=== PATIENT | female | born 1960 | race Caucasian/White ===

== ENCOUNTER 2021-06-22 13:04 | Inpatient (IN) ==
[2021-06-22 14:26] LABS: Basophils # 0.1 K/mcL (0.0-0.2); Basophils % 1.4 %; Eosinophils # 0.2 K/mcL (0.0-0.6); Eosinophils % 2.4 %; Hematocrit 40.4 % (35.3-44.9); Hemoglobin 13.6 g/dL (11.5-15.4); Immature Granulocytes % 0.4 % (0-4); Immature Platelets 15.2 % (1.1-6.1); Lymphocytes # 2.2 K/mcL (0.6-4.6); Lymphocytes % 26.3 %; Mean Corpuscular HGB Conc 33.7 g/dL (31.6-35.5); Mean Corpuscular Hemoglobin 30.6 pg (28.0-33.3); Monocytes # 0.5 K/mcL (0.0-1.3); Monocytes % 5.7 %; Neutrophils # 5.4 K/mcL (1.6-8.9); Platelet Count 137 K/mcL (140-400); Red Blood Count 4.44 M/mcL (3.82-4.97); Red Cell Distribution Width 16.8 % (11.5-14.5); Segmented Neutrophils % 63.8 %; White Blood Count 8.5 K/mcL (4.3-11.1)
[2021-06-22 14:48] LABS: Bacteria,Urine Few per hpf (None-Few); Bilirubin,Urine Moderate (Negative); Blood,Urine Trace (Negative); Clarity,Urine Turbid (Clear); Color,Urine Dark-Yellow (Yellow); Glucose,Urine (UA) 300 mg/dL (Normal); Hyaline Casts,Urine Many per lpf (None Seen); Ketones,Urine Negative (Negative); Leukocyte Esterase,Urine Negative (Negative); Mucus,Urine Few per lpf (None-Few); Nitrite,Urine Negative (Negative); Protein,Urine >=300 mg/dL (Neg-Trace); RBC,Urine 0-3 per hpf (0-3); Specific Gravity,Urine 1.029 (1.010-1.025); Squamous Epithelial Cell,Urine Moderate per hpf (None-Few); WBC,Urine 15-30 per hpf (0-3)
[2021-06-22 14:49] LABS: Calcium 9.1 mg/dL (8.6-10.3); Potassium 4.1 mEq/L (3.5-5.1)
[2021-06-22 14:55] LABS: Troponin I 0.07 ng/mL (< 0.04)
[2021-06-22] MEDS ORDERED: 0.9 % Sodium Chloride 1,000 ML IVC ONE (14:58)
[2021-06-22] MEDS ORDERED: Metoclopramide 10 MG/2 ML VIAL IVP ONE (15:02)
[2021-06-22 15:17] LABS: Influenza A PCR Negative (Negative); Influenza B PCR Negative (Negative); Resp. Syncytial Virus PCR Negative (Negative)
[2021-06-22 15:18] LABS: SARS-CoV-2 by PCR (In House) Negative (Negative)
[2021-06-22 16:25] LABS: Albumin 3.1 g/dL (3.5-5.7); Albumin/Globulin Ratio 0.7 (1.1-2.2); Bilirubin,Indirect 1.4 mg/dL (0.0-1.0); Bilirubin,Total 3.4 mg/dL (0.3-1.0); Globulin 4.7 g/dL (2.4-3.5); Total Protein 7.8 g/dL (6.4-8.9)
[2021-06-22 17:07] LABS: INR 1.1; Prothrombin Time 11.7 Seconds (9.4-12.1)
[2021-06-22 17:09] LABS: Activated Partial Thrombo Time 40.6 Seconds (26.0-36.0)
[2021-06-22] MEDS ORDERED: *HR* Dextrose 50 % in Water (Syg) 50 ML SYRINGE IVP PRN (17:10)
[2021-06-22] MEDS ORDERED: Acetaminophen 325 MG TABLET PO PRN (17:10)
[2021-06-22] MEDS ORDERED: D5% in Water 1,000 ML IVC PRN (17:10)
[2021-06-22] MEDS ORDERED: Naloxone 0.4 MG/ML INJ IVP PRN (17:10)
[2021-06-22] MEDS ORDERED: Dextrose Gel 15 GM/37.5 ML TUBE PO PRN ×2 (17:10)
[2021-06-22] MEDS ORDERED: Ondansetron 4 MG/2 ML VIAL IVP PRN (17:10)
[2021-06-22] MEDS ORDERED: cefTRIAXone 1,000 MG in Water for inj. (sterile) 10 ML IVP ONE (17:12)
[2021-06-22] MEDS: Insulin LISPRO 300 UNITS/3 ML VIAL SUBQ SCH (19:23)
[2021-06-22] MEDS: Ringers Solution, Lactated 1,000 ML IVC SCH (19:24)
[2021-06-22] MEDS: Insulin DETEMIR 100 UNIT/ML X5UNITS SUBQ SCH (21:04)
[2021-06-23] MEDS: Insulin LISPRO 300 UNITS/3 ML VIAL SUBQ SCH ×4 (00:08→19:09)
[2021-06-23] MEDS: Ringers Solution, Lactated 1,000 ML IVC SCH ×4 (02:05→21:48)
[2021-06-23 05:53] LABS: Eosinophils % 3.5 %; Lymphocytes % 30.4 %
[2021-06-23 05:55] LABS: Basophils # 0.1 K/mcL (0.0-0.2); Basophils % 1.3 %; Eosinophils # 0.3 K/mcL (0.0-0.6); Hematocrit 37.6 % (35.3-44.9); Hemoglobin 12.7 g/dL (11.5-15.4); Immature Granulocytes % 0.3 % (0-4); Immature Platelets 15.4 % (1.1-6.1); Lymphocytes # 2.3 K/mcL (0.6-4.6); Mean Corpuscular HGB Conc 33.8 g/dL (31.6-35.5); Mean Corpuscular Hemoglobin 30.2 pg (28.0-33.3); Mean Corpuscular Volume 89.3 fL (83.0-100.0); Monocytes # 0.4 K/mcL (0.0-1.3); Monocytes % 5.4 %; Neutrophils # 4.5 K/mcL (1.6-8.9); Platelet Count 119 K/mcL (140-400); Red Blood Count 4.21 M/mcL (3.82-4.97); Red Cell Distribution Width 16.9 % (11.5-14.5); Segmented Neutrophils % 59.1 %; White Blood Count 7.6 K/mcL (4.3-11.1)
[2021-06-23 06:19] LABS: Alanine Aminotransferase 169 Units/L (7-52); Albumin 2.8 g/dL (3.5-5.7); Albumin/Globulin Ratio 0.7 (1.1-2.2); Alkaline Phosphatase 1240 Units/L (34-104); Aspartate Amino Transferase 226 Units/L (13-39); BUN/Creatinine Ratio 14 (6-26); Bilirubin,Direct 1.6 mg/dL (0.0-0.2); Bilirubin,Indirect 0.9 mg/dL (0.0-1.0); Bilirubin,Total 2.5 mg/dL (0.3-1.0); Blood Urea Nitrogen 14 mg/dL (6-20); Calcium 8.7 mg/dL (8.6-10.3); Carbon Dioxide 27 mEq/L (23-29); Chloride 102 mEq/L (98-107); Glucose 146 mg/dL (70-105); Lipase 163 Units/L (11-82); Magnesium 1.5 mg/dL (1.6-2.6); Osmolality,Calculated 285 (280-300); Potassium 3.6 mEq/L (3.5-5.1); Sodium 136 mEq/L (136-145); Total Protein 6.8 g/dL (6.4-8.9); eGFR For African Americans > 60 (> 60); eGFR For Non-African Americans 57 (> 60)
[2021-06-23 06:34] LABS: Platelet Estimate Slight Decrease (Normal)
[2021-06-23] MEDS ORDERED: cefTRIAXone 1,000 MG in Water for inj. (sterile) 10 ML IVP SCH (09:00)
[2021-06-23] MEDS: Insulin DETEMIR 100 UNIT/ML X5UNITS SUBQ SCH (20:11)
[2021-06-24] MEDS: Insulin LISPRO 300 UNITS/3 ML VIAL SUBQ SCH ×2 (00:25→05:58)
[2021-06-24 03:58] VITALS: PULSE 58
[2021-06-24] MEDS: Ringers Solution, Lactated 1,000 ML IVC SCH (05:49)
[2021-06-24 07:05] LABS: Mean Corpuscular Volume 89.5 fL (83.0-100.0); White Blood Count 7.9 K/mcL (4.3-11.1)
[2021-06-24 07:07] LABS: Basophils # 0.1 K/mcL (0.0-0.2); Basophils % 1.5 %; Eosinophils # 0.3 K/mcL (0.0-0.6); Eosinophils % 3.5 %; Hematocrit 37.6 % (35.3-44.9); Hemoglobin 12.9 g/dL (11.5-15.4); Immature Granulocytes % 0.3 % (0-4); Immature Platelets 14.9 % (1.1-6.1); Lymphocytes # 2.4 K/mcL (0.6-4.6); Lymphocytes % 29.9 %; Mean Corpuscular HGB Conc 34.3 g/dL (31.6-35.5); Mean Corpuscular Hemoglobin 30.7 pg (28.0-33.3); Monocytes # 0.5 K/mcL (0.0-1.3); Monocytes % 6.6 %; Neutrophils # 4.6 K/mcL (1.6-8.9); Platelet Count 130 K/mcL (140-400); Red Cell Distribution Width 16.8 % (11.5-14.5); Segmented Neutrophils % 58.2 %
[2021-06-24 07:11] VITALS: BP 161/86; TEMP 97.9; O2SAT 90
[2021-06-24 07:24] LABS: Alanine Aminotransferase 156 Units/L (7-52); Albumin 2.9 g/dL (3.5-5.7); Albumin/Globulin Ratio 0.7 (1.1-2.2); Alkaline Phosphatase 1247 Units/L (34-104); Aspartate Amino Transferase 208 Units/L (13-39); BUN/Creatinine Ratio 15 (6-26); Bilirubin,Total 2.1 mg/dL (0.3-1.0); Blood Urea Nitrogen 14 mg/dL (6-20); Calcium 8.8 mg/dL (8.6-10.3); Carbon Dioxide 28 mEq/L (23-29); Chloride 102 mEq/L (98-107); Chol/HDL Ratio 10.4 (0-4.9); Cholesterol 270 mg/dL (< 200); Globulin 4.2 g/dL (2.4-3.5); Glucose 65 mg/dL (70-105); HDL Cholesterol 26 mg/dL (40-59); LDL Cholesterol,Calculated 224 mg/dL (< 100); Osmolality,Calculated 285 (280-300); Potassium 3.2 mEq/L (3.5-5.1); Sodium 138 mEq/L (136-145); Total Protein 7.1 g/dL (6.4-8.9); Triglycerides 98 mg/dL (< 150); eGFR For African Americans > 60 (> 60); eGFR For Non-African Americans > 60 (> 60)
== END 2021-06-24 11:49 | disposition home or self-care (01) | DRG 438 ==
LOC: 3BNU 13:04 → EMEROOARM 13:04 → 3BNU 18:41
PROVIDERS: ADMIT Student in an Organized Health Care Education/Training Program; ATTEND Student in an Organized Health Care Education/Training Program

== ENCOUNTER 2021-12-23 16:06 | Inpatient (IN) ==
[2021-12-23 17:39] LABS: Hematocrit 26.9 % (35.3-44.9); Hemoglobin 8.6 g/dL (11.5-15.4); Platelet Count 117 K/mcL (140-400); Red Blood Count 2.69 M/mcL (3.82-4.97); Red Cell Distribution Width 25.8 % (11.5-14.5); White Blood Count 11.2 K/mcL (4.3-11.1)
[2021-12-23 17:49] LABS: INR 1.5
[2021-12-23] MEDS ORDERED: Azithromycin 500 MG in D5% in Water 250 ML IVPB ONE (17:59)
[2021-12-23] MEDS ORDERED: cefTRIAXone 2,000 MG in 0.9 % Sodium Chloride Mini Bag 100 ML IVPB ONE (17:59)
[2021-12-23 18:19] LABS: Lymphocytes # 0.2 K/mcL (0.6-4.6); Neutrophils # 10.1 K/mcL (1.6-8.9)
[2021-12-23 18:20] LABS: Albumin 2.1 g/dL (3.5-5.7); Albumin/Globulin Ratio 0.7 (1.1-2.2); Anisocytosis 2+ (Not Present); Bilirubin,Direct 9.4 mg/dL (0.0-0.2); Bilirubin,Indirect 6.3 mg/dL (0.0-1.0); Bilirubin,Total 15.7 mg/dL (0.3-1.0); Calcium 5.9 mg/dL (8.6-10.3); Globulin 2.9 g/dL (2.4-3.5); Platelet Estimate Slight Decrease (Normal); Potassium 4.6 mEq/L (3.5-5.1); Troponin I 0.17 ng/mL (< 0.04)
[2021-12-23 18:21] LABS: Hypochromasia Present (Not Present)
[2021-12-23] MEDS ORDERED: Calcium Gluconate 1gm/50mL 1 GM/50 ML BAG IVPB ONE (18:31)
[2021-12-23] MEDS ORDERED: Calcium Gluconate 1gm/50mL BAG IVPB ONE (19:45)
[2021-12-23 20:03] LABS: Adenovirus Not Detected (Not Detect); Bordetella Pertussis Not Detected (Not Detect); Chlamydophila pneumoniae Not Detected (Not Detect); Coronavirus 229E Not Detected (Not Detect); Coronavirus HKU1 Not Detected (Not Detect); Coronavirus NL63 Not Detected (Not Detect); Coronavirus OC43 Not Detected (Not Detect); Human Metapneumovirus Not Detected (Not Detect); Human Rhinovirus/Enterovirus Not Detected (Not Detect); Influenza A Subtype 2009 H1 Not Detected (Not Detect); Influenza B Not Detected (Not Detect); Mycoplasma pneumoniae Not Detected (Not Detect); Parainfluenza Virus 1 Not Detected (Not Detect); Parainfluenza Virus 2 Not Detected (Not Detect); Parainfluenza Virus 3 Not Detected (Not Detect); Parainfluenza Virus 4 Not Detected (Not Detect); Respiratory Syncytial Virus Not Detected (Not Detect); SARS-CoV-2 Not Detected (Not Detect)
[2021-12-23] MEDS ORDERED: Naloxone 0.4 MG/ML INJ IVP PRN (22:25)
[2021-12-23] MEDS ORDERED: Dextrose 4 GM Chewable Tablets PO PRN ×2 (22:30)
[2021-12-23] MEDS ORDERED: D5% in Water 1,000 ML IVC PRN (22:30)
[2021-12-23] MEDS ORDERED: *HR* Dextrose 50 % in Water (Syg) 50 ML SYRINGE IVP PRN (22:30)
[2021-12-23] MEDS ORDERED: Aspirin 81 MG TAB.CHEW PO ONE (22:45)
[2021-12-23] MEDS ORDERED: Aspirin 81 MG TAB.CHEW PO SCH (22:45)
[2021-12-23] MEDS ORDERED: Albumin 25% 25gram/100mL 25 GM/100 ML IV.SOLN IVPB ONE (23:23)
[2021-12-24] MEDS ORDERED: *HR* OxyCODONE Immed Rel 5 MG TABLET PO PRN ×2 (00:07)
[2021-12-24] MEDS: Insulin DETEMIR 100 UNIT/ML X5UNITS SUBQ SCH ×2 (01:12→07:53)
[2021-12-24 03:18] LABS: Basophils % 0.3 %; Hematocrit 26.3 % (35.3-44.9); Hemoglobin 8.2 g/dL (11.5-15.4); Immature Granulocytes % 3.5 % (0-4); Lymphocytes # 0.6 K/mcL (0.6-4.6); Lymphocytes % 5.2 %; Mean Corpuscular HGB Conc 31.2 g/dL (31.6-35.5); Mean Corpuscular Hemoglobin 31.4 pg (28.0-33.3); Mean Corpuscular Volume 100.8 fL (83.0-100.0); Mean Platelet Volume 11.8 fL (9.4-12.4); Monocytes # 0.3 K/mcL (0.0-1.3); Monocytes % 2.8 %; Nucleated Red Blood Cells 0.2 /100 WBC (0); Platelet Count 103 K/mcL (140-400); Red Blood Count 2.61 M/mcL (3.82-4.97); Red Cell Distribution Width 25.2 % (11.5-14.5); Segmented Neutrophils % 88.2 %; White Blood Count 10.9 K/mcL (4.3-11.1)
[2021-12-24 03:20] LABS: Neutrophils # 9.6 K/mcL (1.6-8.9)
[2021-12-24 03:25] LABS: INR 1.5
[2021-12-24 03:46] LABS: Albumin 2.4 g/dL (3.5-5.7); Albumin/Globulin Ratio 0.8 (1.1-2.2); Bilirubin,Total 15.8 mg/dL (0.3-1.0); Calcium 6.1 mg/dL (8.6-10.3); Magnesium 1.5 mg/dL (1.6-2.6); Phosphorous 6.8 mg/dL (2.7-4.5); Potassium 4.6 mEq/L (3.5-5.1); Total Protein 5.4 g/dL (6.4-8.9); Troponin I 0.15 ng/mL (< 0.04)
[2021-12-24 03:53] LABS: Anisocytosis 3+ (Not Present); Hypochromasia Present (Not Present); Platelet Estimate Decreased (Normal)
[2021-12-24] MEDS ORDERED: *HR* Heparin 5,000 UNIT/ML VIAL SQ SCH (06:00)
[2021-12-24] MEDS: Insulin LISPRO 300 UNITS/3 ML VIAL SUBQ SCH ×4 (07:51→21:19)
[2021-12-24] MEDS: Levothyroxine 25 MCG TABLET PO SCH (07:54)
[2021-12-24] MEDS ORDERED: Aspirin 81 MG TAB.CHEW PO SCH (09:00)
[2021-12-24] MEDS ORDERED: *HR* Heparin 10,000 UNIT/10 ML VIAL IV PRN (09:24)
[2021-12-24] MEDS ORDERED: 0.9 % Sodium Chloride 250 ML IVC PRN (09:24)
[2021-12-24] MEDS ORDERED: 0.9 % Sodium Chloride 1,000 ML PRIME SCH (09:30)
[2021-12-24 11:01] LABS: Hepatitis B Surface Antibody 84.16 mIU/mL
[2021-12-24 11:12] LABS: Hepatitis B Surface Antigen Nonreactive (Nonreactive)
[2021-12-24] MEDS: predniSONE 20 MG TABLET PO SCH (14:47)
[2021-12-24] MEDS: Calcium Gluconate 1gm/50mL 1 GM/50 ML BAG IVPB SCH ×3 (14:59→16:13)
[2021-12-24] MEDS ORDERED: cefTRIAXone 1,000 MG in 0.9 % Sodium Chloride Mini Bag 100 ML IVPB SCH (15:00)
[2021-12-24] MEDS ORDERED: Azithromycin 500 MG in 0.9 % Sodium Chloride 250 ML IVPB SCH (15:00)
[2021-12-24] MEDS: Sulfamethoxazole/Trimeth DS 1 EACH TABLET PO SCH (16:50)
[2021-12-24] MEDS: Albumin 25% 25gram/100mL 25 GM/100 ML IV.SOLN IVPB SCH (17:15)
[2021-12-24] MEDS ORDERED: Perflutren Lipid Microsphere 1.3 ML in 0.9 % Sodium Chloride 8.7 ML IVP PRN (17:43)
[2021-12-24] MEDS: Pantoprazole 40 MG VIAL IVP SCH (17:49)
[2021-12-24 19:18] LABS: Basophils % 0.3 %; Eosinophils % 0.3 %; Hematocrit 26.7 % (35.3-44.9); Hemoglobin 8.4 g/dL (11.5-15.4); Immature Granulocytes % 2.6 % (0-4); Lymphocytes # 0.4 K/mcL (0.6-4.6); Mean Corpuscular HGB Conc 31.5 g/dL (31.6-35.5); Mean Corpuscular Hemoglobin 30.7 pg (28.0-33.3); Mean Corpuscular Volume 97.4 fL (83.0-100.0); Mean Platelet Volume 11.4 fL (9.4-12.4); Monocytes # 0.4 K/mcL (0.0-1.3); Monocytes % 4.3 %; Neutrophils # 8.9 K/mcL (1.6-8.9); Nucleated Red Blood Cells 0.2 /100 WBC (0); Platelet Count 107 K/mcL (140-400); Red Blood Count 2.74 M/mcL (3.82-4.97); Red Cell Distribution Width 24.7 % (11.5-14.5); Segmented Neutrophils % 88.5 %; White Blood Count 10.1 K/mcL (4.3-11.1)
[2021-12-24 19:51] LABS: A.calcoaceticus-baumannii cplx Not Detected (Not Detect); Bacteroides fragilis by PCR Not Detected (Not Detect); Candida albicans by PCR Not Detected (Not Detect); Candida auris by PCR Not Detected (Not Detect); Candida glabrata by PCR Not Detected (Not Detect); Candida krusei by PCR Not Detected (Not Detect); Candida parapsilosis by PCR Not Detected (Not Detect); Candida tropicalis by PCR Not Detected (Not Detect); Crypto. neoformans/gattii PCR Not Detected (Not Detect); Enterobacter cloacae Cmplx PCR Not Detected (Not Detect); Enterobacterales by PCR Not Detected (Not Detect); Enterococcus faecalis by PCR Not Detected (Not Detect); Enterococcus faecium by PCR Not Detected (Not Detect); Escherichia coli by PCR Not Detected (Not Detect); Klebs. pneumoniae group by PCR Not Detected (Not Detect); Klebsiella aerogenes by PCR Not Detected (Not Detect); Klebsiella oxytoca by PCR Not Detected (Not Detect); Proteus by PCR Not Detected (Not Detect); Pseudomonas aeruginosa by PCR Not Detected (Not Detect); Salmonella species by PCR Not Detected (Not Detect); Serratia marcescens by PCR Not Detected (Not Detect); Staph epidermidis by PCR Not Detected (Not Detect); Staph lugdunensis by PCR Not Detected (Not Detect); Staphylococcus aureus by PCR Not Detected (Not Detect); Staphylococcus by PCR DETECTED (Not Detect); Stenotrophomonas maltophilia Not Detected (Not Detect); Streptococcus agalactiae(B)PCR Not Detected (Not Detect); Streptococcus by PCR Not Detected (Not Detect); Streptococcus pneumoniae PCR Not Detected (Not Detect); Streptococcus pyogenes (A) PCR Not Detected (Not Detect)
[2021-12-24] MEDS: cefTRIAXone 1,000 MG in 0.9 % Sodium Chloride 10 ML IVPB SCH (20:05)
[2021-12-24] MEDS: Azithromycin 500 MG in 0.9 % Sodium Chloride 250 ML IVPB SCH (20:13)
[2021-12-24 20:36] LABS: Anisocytosis 1+ (Not Present); Platelet Estimate Decreased (Normal)
[2021-12-25] MEDS: Albumin 25% 25gram/100mL 25 GM/100 ML IV.SOLN IVPB SCH ×4 (00:30→23:31)
[2021-12-25 01:24] LABS: Red Blood Count 2.71 M/mcL (3.82-4.97)
[2021-12-25 01:25] LABS: Basophils % 0.2 %; Eosinophils % 0.1 %; Hematocrit 26.9 % (35.3-44.9); Hemoglobin 8.3 g/dL (11.5-15.4); Immature Granulocytes % 2.9 % (0-4); Immature Platelets 7.2 % (1.1-6.1); Lymphocytes # 0.4 K/mcL (0.6-4.6); Lymphocytes % 4.1 %; Mean Corpuscular HGB Conc 30.9 g/dL (31.6-35.5); Mean Corpuscular Hemoglobin 30.6 pg (28.0-33.3); Mean Corpuscular Volume 99.3 fL (83.0-100.0); Mean Platelet Volume 10.6 fL (9.4-12.4); Monocytes # 0.2 K/mcL (0.0-1.3); Monocytes % 2.4 %; Neutrophils # 9.1 K/mcL (1.6-8.9); Platelet Count 106 K/mcL (140-400); Red Cell Distribution Width 24.9 % (11.5-14.5); Segmented Neutrophils % 90.3 %; White Blood Count 10.1 K/mcL (4.3-11.1)
[2021-12-25 01:31] LABS: Calcium 6.8 mg/dL (8.6-10.3); Magnesium 1.8 mg/dL (1.6-2.6); Phosphorous 4.8 mg/dL (2.7-4.5); Potassium 3.8 mEq/L (3.5-5.1)
[2021-12-25 03:58] LABS: Anisocytosis 1+ (Not Present)
[2021-12-25 03:59] LABS: Platelet Estimate Slight Decrease (Normal)
[2021-12-25] MEDS: Levothyroxine 25 MCG TABLET PO SCH (04:53)
[2021-12-25] MEDS: Pantoprazole 40 MG VIAL IVP SCH ×2 (05:01→18:14)
[2021-12-25] MEDS: Ondansetron ODT 4 MG TAB.RAPDIS SL PRN (05:02)
[2021-12-25] MEDS: predniSONE 20 MG TABLET PO SCH (09:09)
[2021-12-25] MEDS: Insulin LISPRO 300 UNITS/3 ML VIAL SUBQ SCH ×4 (10:16→20:27)
[2021-12-25] MEDS: Calcium Gluconate 1gm/50mL 1 GM/50 ML BAG IVPB SCH ×2 (10:48→11:27)
[2021-12-25] MEDS: Insulin DETEMIR 100 UNIT/ML X5UNITS SUBQ SCH (10:51)
[2021-12-25] MEDS ORDERED: methocarbamoL 500 MG TABLET PO PRN (10:56)
[2021-12-25] MEDS: Aspirin Enteric Coated 81 MG Tablet PO SCH (13:23)
[2021-12-25] MEDS: cefTRIAXone 1,000 MG in 0.9 % Sodium Chloride 10 ML IVPB SCH (18:15)
[2021-12-25] MEDS: Azithromycin 500 MG in 0.9 % Sodium Chloride 250 ML IVPB SCH (18:26)
[2021-12-25] MEDS: *HR* OxyCODONE Immed Rel 5 MG TABLET PO PRN (22:19)
[2021-12-25] MEDS: Melatonin 3 MG TABLET PO PRN (22:19)
[2021-12-26 04:41] LABS: Basophils % 0.3 %; Hematocrit 24.2 % (35.3-44.9); Hemoglobin 7.7 g/dL (11.5-15.4); Immature Granulocytes % 4.1 % (0-4); Lymphocytes # 0.4 K/mcL (0.6-4.6); Lymphocytes % 4.7 %; Mean Corpuscular HGB Conc 31.8 g/dL (31.6-35.5); Mean Corpuscular Hemoglobin 31.7 pg (28.0-33.3); Mean Corpuscular Volume 99.6 fL (83.0-100.0); Mean Platelet Volume 11.2 fL (9.4-12.4); Monocytes # 0.5 K/mcL (0.0-1.3); Monocytes % 5.2 %; Platelet Count 108 K/mcL (140-400); Red Blood Count 2.43 M/mcL (3.82-4.97); Red Cell Distribution Width 24.7 % (11.5-14.5); Segmented Neutrophils % 85.7 %; White Blood Count 9.4 K/mcL (4.3-11.1)
[2021-12-26 04:56] LABS: Neutrophils # 8.1 K/mcL (1.6-8.9)
[2021-12-26 04:58] LABS: Calcium 6.5 mg/dL (8.6-10.3); Magnesium 1.8 mg/dL (1.6-2.6); Phosphorous 5.4 mg/dL (2.7-4.5); Potassium 4.1 mEq/L (3.5-5.1)
[2021-12-26] MEDS: Pantoprazole 40 MG VIAL IVP SCH ×2 (05:15→18:11)
[2021-12-26] MEDS: Levothyroxine 25 MCG TABLET PO SCH (05:15)
[2021-12-26 05:19] LABS: Anisocytosis 1+ (Not Present); Hypochromasia Present (Not Present); Platelet Estimate Slight Decrease (Normal); Target Cells 1+ (Not Present)
[2021-12-26] MEDS: Insulin LISPRO 300 UNITS/3 ML VIAL SUBQ SCH ×4 (08:11→21:25)
[2021-12-26] MEDS ORDERED: *HR* Heparin 10,000 UNIT/10 ML VIAL IV PRN (08:47)
[2021-12-26] MEDS ORDERED: 0.9 % Sodium Chloride 250 ML IVC PRN (08:47)
[2021-12-26] MEDS: Albumin 25% 25gram/100mL 25 GM/100 ML IV.SOLN IVPB SCH (10:08)
[2021-12-26] MEDS: Aspirin Enteric Coated 81 MG Tablet PO SCH (10:48)
[2021-12-26] MEDS: predniSONE 20 MG TABLET PO SCH (10:48)
[2021-12-26] MEDS: Insulin DETEMIR 100 UNIT/ML X5UNITS SUBQ SCH (11:12)
[2021-12-26] MEDS: Calcium Gluconate 1gm/50mL 1 GM/50 ML BAG IVPB SCH (13:14)
[2021-12-26] MEDS: *HR* OxyCODONE Immed Rel 5 MG TABLET PO PRN ×2 (16:09→20:54)
[2021-12-26] MEDS ORDERED: Cefdinir 300 MG CAPSULE PO ONE (18:00)
[2021-12-26] MEDS: Sulfamethoxazole/Trimeth DS 1 EACH TABLET PO SCH (21:04)
[2021-12-26] MEDS: Azithromycin 250 MG TABLET PO SCH (21:04)
[2021-12-27] MEDS: *HR* OxyCODONE Immed Rel 5 MG TABLET PO PRN ×3 (01:14→23:26)
[2021-12-27] MEDS: Ondansetron ODT 4 MG TAB.RAPDIS SL PRN ×3 (01:14→20:28)
[2021-12-27 04:13] LABS: Basophils % 0.2 %; Lymphocytes % 6.7 %; Nucleated Red Blood Cells 0.2 /100 WBC (0)
[2021-12-27 04:15] LABS: Eosinophils # 0.1 K/mcL (0.0-0.6); Eosinophils % 0.6 %; Hematocrit 25.2 % (35.3-44.9); Immature Granulocytes % 3.3 % (0-4); Immature Platelets 7.2 % (1.1-6.1); Lymphocytes # 0.6 K/mcL (0.6-4.6); Mean Corpuscular HGB Conc 31.7 g/dL (31.6-35.5); Mean Corpuscular Hemoglobin 31.9 pg (28.0-33.3); Mean Corpuscular Volume 100.4 fL (83.0-100.0); Mean Platelet Volume 11.5 fL (9.4-12.4); Monocytes # 0.4 K/mcL (0.0-1.3); Neutrophils # 7.7 K/mcL (1.6-8.9); Platelet Count 100 K/mcL (140-400); Red Blood Count 2.51 M/mcL (3.82-4.97); Red Cell Distribution Width 24.3 % (11.5-14.5); Segmented Neutrophils % 85.2 %
[2021-12-27 04:26] LABS: Calcium 6.2 mg/dL (8.6-10.3); Magnesium 1.8 mg/dL (1.6-2.6); Phosphorous 5.1 mg/dL (2.7-4.5); Potassium 4.2 mEq/L (3.5-5.1)
[2021-12-27 04:34] LABS: Anisocytosis 3+ (Not Present); Platelet Estimate Decreased (Normal)
[2021-12-27 04:35] LABS: Hypochromasia Present (Not Present); Target Cells 1+ (Not Present)
[2021-12-27] MEDS: Pantoprazole 40 MG VIAL IVP SCH ×2 (06:48→17:47)
[2021-12-27] MEDS: Levothyroxine 25 MCG TABLET PO SCH (06:50)
[2021-12-27] MEDS: Insulin LISPRO 300 UNITS/3 ML VIAL SUBQ SCH ×4 (07:57→20:16)
[2021-12-27] MEDS: Insulin DETEMIR 100 UNIT/ML X5UNITS SUBQ SCH (07:58)
[2021-12-27] MEDS ORDERED: 0.9 % Sodium Chloride 250 ML IVC PRN (08:58)
[2021-12-27] MEDS ORDERED: *HR* Heparin 10,000 UNIT/10 ML VIAL IV PRN (08:58)
[2021-12-27] MEDS: Aspirin Enteric Coated 81 MG Tablet PO SCH (09:02)
[2021-12-27] MEDS: predniSONE 20 MG TABLET PO SCH (09:02)
[2021-12-27] MEDS: Calcium Gluconate 1gm/50mL 1 GM/50 ML BAG IVPB SCH (09:06)
[2021-12-27] MEDS: Calcium Acetate 667 MG CAPSULE PO SCH (17:48)
[2021-12-27] MEDS: Azithromycin 250 MG TABLET PO SCH (17:49)
[2021-12-28 00:36] LABS: Basophils % 0.4 %; Eosinophils % 0.4 %; Hematocrit 24.2 % (35.3-44.9); Hemoglobin 7.7 g/dL (11.5-15.4); Immature Granulocytes % 4.4 % (0-4); Lymphocytes # 0.5 K/mcL (0.6-4.6); Lymphocytes % 6.2 %; Mean Corpuscular HGB Conc 31.8 g/dL (31.6-35.5); Mean Corpuscular Volume 100.4 fL (83.0-100.0); Mean Platelet Volume 12.9 fL (9.4-12.4); Monocytes # 0.3 K/mcL (0.0-1.3); Neutrophils # 6.9 K/mcL (1.6-8.9); Platelet Count 105 K/mcL (140-400); Red Blood Count 2.41 M/mcL (3.82-4.97); Red Cell Distribution Width 23.6 % (11.5-14.5); Segmented Neutrophils % 84.6 %; White Blood Count 8.1 K/mcL (4.3-11.1)
[2021-12-28 01:00] LABS: Anisocytosis 3+ (Not Present); Macrocytosis Present (Not Present); Microcytosis Present (Not Present); Platelet Estimate Decreased (Normal); Poikilocytosis 1+ (Not Present); Target Cells 1+ (Not Present)
[2021-12-28 01:01] LABS: Magnesium 1.8 mg/dL (1.6-2.6); Phosphorous 3.6 mg/dL (2.7-4.5)
[2021-12-28] MEDS: Levothyroxine 25 MCG TABLET PO SCH (05:38)
[2021-12-28] MEDS: Pantoprazole 40 MG VIAL IVP SCH ×2 (05:39→16:46)
[2021-12-28] MEDS: Ondansetron ODT 4 MG TAB.RAPDIS SL PRN ×2 (05:47→22:13)
[2021-12-28] MEDS: Insulin LISPRO 300 UNITS/3 ML VIAL SUBQ SCH ×4 (08:21→22:00)
[2021-12-28] MEDS: Calcium Acetate 667 MG CAPSULE PO SCH ×3 (10:03→16:45)
[2021-12-28] MEDS: Albumin 25% 25gram/100mL 25 GM/100 ML IV.SOLN IVC SCH ×2 (10:04→11:49)
[2021-12-28] MEDS: Insulin DETEMIR 100 UNIT/ML X5UNITS SUBQ SCH (10:04)
[2021-12-28] MEDS: predniSONE 20 MG TABLET PO SCH (10:40)
[2021-12-28] MEDS: Aspirin Enteric Coated 81 MG Tablet PO SCH (10:42)
[2021-12-28] MEDS: Melatonin 3 MG TABLET PO PRN (20:43)
[2021-12-28] MEDS: *HR* OxyCODONE Immed Rel 5 MG TABLET PO PRN (22:49)
[2021-12-29] MEDS: Levothyroxine 25 MCG TABLET PO SCH (06:20)
[2021-12-29] MEDS: Pantoprazole 40 MG VIAL IVP SCH ×2 (06:20→18:18)
[2021-12-29 06:58] LABS: Basophils % 0.1 %; Eosinophils % 0.2 %; Hematocrit 22.2 % (35.3-44.9); Hemoglobin 7.2 g/dL (11.5-15.4); Immature Granulocytes % 3.3 % (0-4); Lymphocytes # 0.6 K/mcL (0.6-4.6); Lymphocytes % 6.5 %; Mean Corpuscular HGB Conc 32.4 g/dL (31.6-35.5); Mean Corpuscular Hemoglobin 32.1 pg (28.0-33.3); Mean Corpuscular Volume 99.1 fL (83.0-100.0); Mean Platelet Volume 12.2 fL (9.4-12.4); Monocytes # 0.4 K/mcL (0.0-1.3); Monocytes % 3.8 %; Neutrophils # 8.1 K/mcL (1.6-8.9); Nucleated Red Blood Cells 0.2 /100 WBC (0); Platelet Count 276 K/mcL (140-400); Red Blood Count 2.24 M/mcL (3.82-4.97); Red Cell Distribution Width 24.1 % (11.5-14.5); Segmented Neutrophils % 86.1 %; White Blood Count 9.4 K/mcL (4.3-11.1)
[2021-12-29 07:14] LABS: Anisocytosis 2+ (Not Present); Hypochromasia Present (Not Present); Target Cells 1+ (Not Present)
[2021-12-29 07:15] LABS: Macrocytosis Present (Not Present); Platelet Estimate Normal (Normal)
[2021-12-29 07:21] LABS: Calcium 5.6 mg/dL (8.6-10.3); Magnesium 1.7 mg/dL (1.6-2.6); Phosphorous 4.3 mg/dL (2.7-4.5); Potassium 5.4 mEq/L (3.5-5.1)
[2021-12-29] MEDS: Calcium Gluconate 1gm/50mL 1 GM/50 ML BAG IVPB SCH ×3 (08:47→15:43)
[2021-12-29] MEDS: Insulin LISPRO 300 UNITS/3 ML VIAL SUBQ SCH ×4 (08:47→21:55)
[2021-12-29] MEDS: Calcium Acetate 667 MG CAPSULE PO SCH ×3 (08:47→18:18)
[2021-12-29] MEDS: predniSONE 20 MG TABLET PO SCH (08:48)
[2021-12-29] MEDS: Aspirin Enteric Coated 81 MG Tablet PO SCH (08:48)
[2021-12-29] MEDS: Insulin DETEMIR 100 UNIT/ML X5UNITS SUBQ SCH (08:52)
[2021-12-29] MEDS ORDERED: 0.9 % Sodium Chloride 250 ML IVC PRN (09:09)
[2021-12-29] MEDS ORDERED: *HR* Heparin 10,000 UNIT/10 ML VIAL IV PRN (09:09)
[2021-12-29] MEDS: Ondansetron ODT 4 MG TAB.RAPDIS SL PRN (12:13)
[2021-12-29] MEDS: Sulfamethoxazole/Trimeth DS 1 EACH TABLET PO SCH (18:22)
[2021-12-30] MEDS: *HR* OxyCODONE Immed Rel 5 MG TABLET PO PRN (00:02)
[2021-12-30 04:18] LABS: Basophils % 0.3 %; Eosinophils # 0.1 K/mcL (0.0-0.6); Eosinophils % 0.7 %; Hematocrit 25.4 % (35.3-44.9); Hemoglobin 7.9 g/dL (11.5-15.4); Immature Granulocytes % 2.6 % (0-4); Immature Platelets 4.9 % (1.1-6.1); Lymphocytes # 0.6 K/mcL (0.6-4.6); Lymphocytes % 5.9 %; Mean Corpuscular HGB Conc 31.1 g/dL (31.6-35.5); Mean Corpuscular Hemoglobin 32.1 pg (28.0-33.3); Mean Corpuscular Volume 103.3 fL (83.0-100.0); Mean Platelet Volume 11.5 fL (9.4-12.4); Monocytes # 0.4 K/mcL (0.0-1.3); Monocytes % 4.5 %; Neutrophils # 8.3 K/mcL (1.6-8.9); Platelet Count 104 K/mcL (140-400); Red Blood Count 2.46 M/mcL (3.82-4.97); Red Cell Distribution Width 22.6 % (11.5-14.5); White Blood Count 9.7 K/mcL (4.3-11.1)
[2021-12-30 04:28] LABS: Calcium 7.6 mg/dL (8.6-10.3); Magnesium 1.7 mg/dL (1.6-2.6); Phosphorous 3.2 mg/dL (2.7-4.5); Potassium 3.8 mEq/L (3.5-5.1)
[2021-12-30] MEDS: Levothyroxine 25 MCG TABLET PO SCH (06:22)
[2021-12-30] MEDS: Pantoprazole 40 MG VIAL IVP SCH ×2 (06:22→18:11)
[2021-12-30 07:06] VITALS: TEMP 98.5
[2021-12-30] MEDS: Insulin LISPRO 300 UNITS/3 ML VIAL SUBQ SCH ×3 (07:11→17:50)
[2021-12-30] MEDS: Calcium Gluconate 1gm/50mL 1 GM/50 ML BAG IVPB SCH ×2 (08:50→10:05)
[2021-12-30] MEDS: Calcium Acetate 667 MG CAPSULE PO SCH ×3 (08:50→17:50)
[2021-12-30] MEDS: Insulin DETEMIR 100 UNIT/ML X5UNITS SUBQ SCH (08:51)
[2021-12-30] MEDS: predniSONE 20 MG TABLET PO SCH (08:51)
[2021-12-30] MEDS: Aspirin Enteric Coated 81 MG Tablet PO SCH (08:51)
[2021-12-30 15:48] VITALS: BP 134/51; PULSE 63; O2SAT 96
== END 2021-12-30 18:35 | disposition home health service (06) | DRG 279 ==
LOC: EMEROOARM 16:06 → 2NENU 16:06
PROVIDERS: ADMIT Student in an Organized Health Care Education/Training Program; ATTEND Student in an Organized Health Care Education/Training Program